=== PATIENT | female | born 1990 | race Caucasian/White ===

== ENCOUNTER 2024-08-13 21:17 | Emergency (ER) | payer SELFPAY ==
[2024-08-13 21:17] VITALS: BMI 38.4
[2024-08-13 21:19] VITALS: BP 171/121
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
[2024-08-13] MEDS: MOTRIN 800 MG PO (21:42)
[2024-08-13 23:18] VITALS: BP 167/85
== END 2024-08-13 23:31 | disposition home or self-care (01) ==
LOC: EMR 21:17
PROVIDERS: EMERGENCY PHYSICIAN Student in an Organized Health Care Education/Training Program
DX: S20.219A Contusion of unspecified front wall of thorax, initial encounter (principal); M25.562 Pain in left knee; M25.561 Pain in right knee; V43.52XA Car driver injured in collision with other type car in traffic accident, initial encounter; Y92.410 Unspecified street and highway as the place of occurrence of the external cause
CPT/HCPCS: 99283; 71046; 73564

== ENCOUNTER 2024-08-20 23:04 | Emergency (ER) | payer SELFPAY ==
[2024-08-20 23:06] VITALS: BP 150/102
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
[2024-08-20 23:53] LABS: % Basophils 0.9 % (0-2); % Eosinophils 9.4 % (0-6); % Immature Granulocytes 0.5 % (0-0.5); % Lymphocytes 33.1 % (20.5-51.1); % Monocytes 6.6 % (1.7-9.3); % Neutrophils 49.5 % (42.2-75.2); Absolute Basophils 0.1 10^3/uL (0-0.2); Absolute Eosinophils 0.9 10^3/uL (0-0.7); Absolute Immature Granulocytes 0.1 10^3/uL (0-0.05); Absolute Lymphocytes 3.3 10^3/uL (1.2-3.4); Absolute Monocytes 0.7 10^3/uL (0.1-0.6); Absolute Neutrophils 4.9 10^3/uL (1.4-6.5); Hematocrit 35.5 % (37.0-47.0); Mean Corp Hgb Conc. 33.8 g/dL (33.0-37.0); Mean Corpuscular Hgb 30.4 pg (27.0-31.0); Mean Corpuscular Volume 89.9 fL (81.0-99.0); Mean Platelet Volume 9.1 fL (7.4-10.4); Nucleated Red Blood Cells % 0 %; Platelet Count 361 10^3/uL (130-400); Red Blood Cell Count 3.95 10^6/uL (4.20-5.40); Red Cell Dist. Width 13.8 % (11.5-14.5)
[2024-08-21 00:02] VITALS: BP 130/79
[2024-08-21 00:05] LABS: HCG, Serum Qualitative Screen Negative
[2024-08-21 00:11] LABS: ALT (SGPT) 29 U/L (0-35); AST (SGOT) 27 U/L (14-36); Albumin 4.5 g/dl (3.5-5.0); Alkaline Phosphatase 68 U/L (38-126); Blood Urea Nitrogen 17 mg/dl (7-17); Calcium 9.1 mg/dl (8.4-10.2); Carbon Dioxide 26 mmol/L (22-30); Chloride 103 mmol/L (98-107); Glucose 118 mg/dl (70-99); Potassium 4.1 mmol/L (3.5-5.1); Sodium 142 mmol/L (135-145); Total Bilirubin 0.2 mg/dl (0.2-1.3); Total Protein 7.3 g/dl (6.3-8.2); eGFR > 60.00
[2024-08-21] MEDS: PEPCID 20 MG PO (01:21)
[2024-08-21 01:26] VITALS: BP 138/89
== END 2024-08-21 01:35 | disposition home or self-care (01) ==
LOC: EMR 23:04
PROVIDERS: EMERGENCY PHYSICIAN Student in an Organized Health Care Education/Training Program
DX: S20.219A Contusion of unspecified front wall of thorax, initial encounter (principal); V89.2XXA Person injured in unspecified motor-vehicle accident, traffic, initial encounter; Y92.410 Unspecified street and highway as the place of occurrence of the external cause
CPT/HCPCS: 99284; 96374; 71270; 74178; 80053; 84703; 85025; Q9967